=== PATIENT | male | born 1970 | race Caucasian/White ===

== ENCOUNTER 2024-02-25 07:56 | Day surgery (SDC) | payer OTHER ==
[~2024-02-25] VITALS: Ht 182.9 cm; Wt 110.6 kg
[~2024-02-25 07:56] MED LIST: Augmentin Xr 11 EACH PO; CEPH500 PO; COLC.6 PO; FentaNYL Citrate 50 MCG/ML 2 ML Injection ONE; Flonase 0.05% N16 GM; HYDACE10B PO; INDO50 PO; INDOMETHACIN; Lidocaine HCl/Pf 1% 5 ML VIAL ONE; METO50ER PO; Midazolam HCl 1MG / ML 2ML Vial ONE; Triamcinolone Inj Susp 40 MG / ML 1ML Vial ONE; propofoL 20 ML IV ONE
[2024-02-25] MEDS ORDERED: ALLO300 PO (08:18)
[2024-02-25] MEDS ORDERED: Ventolin5 MG/1 ML INH (08:19)
[2024-02-25] MEDS ORDERED: Bupivacaine 0.5% HCl 5 MG/ML 30MLVIAL ONE (08:26)
[2024-02-25] MEDS ORDERED: Lidocaine 2%-Epineph 1:200000 20 ML SDV ONE (08:26)
[2024-02-25] MEDS ORDERED: Ondansetron HCl 2 MG / ML 2ML Vial ONE (08:26)
[2024-02-25] MEDS ORDERED: Dexamethasone Sod Phos 10 MG/ML 1ML VIAL ONE (08:26)
[2024-02-25] MEDS ORDERED: Lactated Ringer's 1,000 ML IV ONE ×2 (08:34→08:35)
--- NOTE | 2024-02-25 08:34 | NUR ---
02/25/24 [address] COWATR IN TO DISCUSS BLOCK PRIOR TO PROCEDURE
[2024-02-25] MEDS ORDERED: CeFAZolin Sodium 2,000 MG VIAL ONE (08:35)
[2024-02-25] MEDS ORDERED: NS 50 ML IV ONE (08:35)
--- NOTE | 2024-02-25 09:09 | NUR ---
02/25/24 0909 Mine Mccall 0.15ML OF EPI (1MG/ML) ADDED TO 30ML OF 0.5% BUPIVACAINE TO MAKE BUPIVACAINE 0.5% WITH EPI 1:200,000, ON FIELD.
[2024-02-25] MEDS ORDERED: Bupivacaine 0.5% HCl 5 MG/ML 30MLVIAL INJ ONE ×2 (09:10)
[2024-02-25] MEDS ORDERED: EPINEPhrine HCl 1 MG/ML 1ML Amp XX ONE (09:10)
[2024-02-25] MEDS ORDERED: propofoL 20 ML IV ONE (09:16)
[2024-02-25] MEDS ORDERED: Glycopyrrolate 0.2 MG/ML 5ML VIAL ONE (09:34)
[2024-02-25] MEDS ORDERED: Ketorolac Tromethamine 30mg Vial ONE (09:34)
[2024-02-25 10:54] VITALS: BP 144/89
--- NOTE | 2024-02-25 11:06 | NUR ---
02/25/24 1106 ELODIA VALENCIA BP READING OF 193/148 IS WHILE PATIENT IS USING HIS PHONE TO TEXT. REPEAT BP
== END 2024-02-25 11:32 | disposition home or self-care (01) ==
LOC: ORSCSDS 07:56
PROVIDERS: Orthopaedic Surgery
PROC: 0QBD0ZZ Excision of Right Patella, Open Approach (ICD-10-PCS; principal; 2024-02-25 09:30)
DX: R22.41 Localized swelling, mass and lump, right lower limb (principal); M1A.9XX1 Chronic gout, unspecified, with tophus (tophi); J45.909 Unspecified asthma, uncomplicated; E66.9 Obesity, unspecified; Z68.33 Body mass index [BMI] 33.0-33.9, adult; Z79.899 Other long term (current) drug therapy
CPT/HCPCS: A6010; J0171; J0690; J1100; J1885; J2001; J2250; J2405; J2704; J3010; J3301; J7120